=== PATIENT | female | born 1950 | race Caucasian/White ===

== ENCOUNTER 2018-11-07 17:01 | Emergency (ER) | payer BC ==
[~2018-11-07] VITALS: Ht 172.7 cm; Wt 68.2 kg
[2018-11-07 17:04] VITALS: BP 177/81; TEMP 99.2
[2018-11-07 18:45] VITALS: PULSE 65
== END 2018-11-07 18:45 | disposition home or self-care (01) ==
LOC: COL.ER 17:01
DX: S09.90XA Unspecified injury of head, initial encounter (principal); W01.198A Fall on same level from slipping, tripping and stumbling with subsequent striking against other object, initial encounter; Y92.524 Gas station as the place of occurrence of the external cause